=== PATIENT | female | born 1975 | race Hispanic/Latino ===

== ENCOUNTER 2023-11-20 20:57 | Emergency (ER) | payer OTHER, BC ==
[~2023-11-20] VITALS: Ht 149.9 cm; Wt 83.0 kg
[2023-11-20 23:16] VITALS: BP 121/62; PULSE 82; RESP 18; O2SAT 97
[2023-11-20] MEDS: IBUPROFEN 600 MG TABLET PO ONE (23:19)
[2023-11-20] MEDS: CYCLOBENZAPRINE HCL 10 MG TABLET PO ONE (23:20)
[2023-11-20 23:45] LABS: BASOPHILS # (AUTO) 0.06 K/uL (0.00-0.20); BASOPHILS % (AUTO) 0.4 % (0.0-5.0); EOSINOPHILS # (AUTO) 0.27 K/uL (0.00-0.70); EOSINOPHILS % (AUTO) 1.7 % (0.0-8.0); HEMATOCRIT 38.2 % (36-48); IMMATURE GRANULOCYTE ABSOLUTE 0.04 K/uL (0-1); LYMPHOCYTES # (AUTO) 2.5 K/uL (1.0-4.8); MEAN CORPUSCULAR HEMOGLOBIN 28.8 pg (27.0-33.0); MEAN CORPUSCULAR HGB CONC 34.3 g/dL (32.0-36.0); NEUTROPHILS % (AUTO) 75.6 % (40.0-77.0); PLATELET COUNT (AUTO) 333 K/uL (130-400); RED BLOOD CELL COUNT(AUTO) 4.55 MIL/uL (4.00-5.50); RED CELL DISTRIBUTION WIDTH 13.2 % (11.0-15.5); WHITE BLOOD COUNT (AUTO) 15.8 K/uL (4.8-10.8)
[2023-11-21 00:01] LABS: CREATININE 0.8 mg/dL (0.5-1.5); POTASSIUM 3.7 mmol/L (3.5-5.1)
[2023-11-21 00:05] LABS: ALBUMIN 3.5 g/dL (3.5-5.0); BILIRUBIN,TOTAL 0.2 mg/dL (0.2-1.0)
[2023-11-21] MEDS ORDERED: CYCL-309 PO (00:07)
[2023-11-21] MEDS ORDERED: NAPR-1180 PO (00:07)
[2023-11-21] MEDS ORDERED: ALOE237J TP (00:14)
[2023-11-21] MEDS ORDERED: MUPI22OI2 TP (00:14)
== END 2023-11-21 00:25 | disposition home or self-care (01) ==
LOC: EDH 20:57
DX: S20.112A Abrasion of breast, left breast, initial encounter (principal); T21.01XA Burn of unspecified degree of chest wall, initial encounter; R07.89 Other chest pain; V89.2XXA Person injured in unspecified motor-vehicle accident, traffic, initial encounter; Y93.89 Activity, other specified; Y92.89 Other specified places as the place of occurrence of the external cause; Y99.8 Other external cause status
CPT/HCPCS: 36415; 70450; 71045; 72125; 80053; 84484; 85025; 93005